=== PATIENT | female | born 1960 | race Caucasian/White ===

== ENCOUNTER 2024-11-09 16:15 | Emergency (ER) | payer MEDICARE ==
[2024-11-09 16:48] VITALS: RESP 16
[2024-11-09] MEDS: SODIUM CHLORIDE 0.9% 1,000 ML IV STA (16:59)
[2024-11-09] MEDS: methylPREDNISolone SOD SUCCI 125 MG/2 ML VIAL IV STA (16:59)
[2024-11-09 17:09] LABS: Basophils % (A) 0 %; Eosinophils # (A) 0.4 k/uL (0-0.7); Eosinophils % (A) 4 %; HCT 40.2 % (34.0-46.0); HGB 13.3 gm/dL (11.4-16.0); Lymphocytes # (A) 1.5 k/uL (1.0-4.8); Lymphocytes % (A) 14 %; MCH 29.1 pg (25.0-35.0); Mean Platelet Volume 7.3; Monocytes # (A) 0.5 k/uL (0-1.0); Monocytes % (A) 5 %; Neutrophils # (A) 8.2 k/uL (1.3-7.7); Neutrophils % (A) 76 %; Platelet Count 311 k/uL (150-450); RBC 4.57 m/uL (3.80-5.40); WBC 10.8 k/uL (3.8-10.6)
[2024-11-09 17:19] LABS: ALT 18 U/L (4-34); AST 30 U/L (14-36); African American GFR (CKD) 65 (>60 ml/min/1.73 sqM); Albumin 4.1 g/dL (3.5-5.0); Alkaline Phosphatase 76 U/L (38-126); Anion Gap 11 mmol/L; Blood Urea Nitrogen 19 mg/dL (7-17); Calcium 9.1 mg/dL (8.4-10.2); Carbon Dioxide 27 mmol/L (22-30); Chloride 98 mmol/L (98-107); Glucose 84 mg/dL (74-99); Magnesium 2.2 mg/dL (1.6-2.3); Non-African American GFR(CKD) 56 (>60 ml/min/1.73 sqM); Potassium 3.4 mmol/L (3.5-5.1); Sodium 136 mmol/L (137-145); Total Bilirubin 0.5 mg/dL (0.2-1.3); Total Protein 7.1 g/dL (6.3-8.2)
[2024-11-09] MEDS: IPRATROPIUM-ALBUTEROL 3 ML NEB INHALATION STA (17:29)
--- NOTE | 2024-11-09 17:36 | XR ---
EXAMINATION TYPE: XR chest 2V DATE OF EXAM: 11/09/2024 4:57 PM COMPARISON: None. CLINICAL INDICATION: Female, 64 years old with history of difficulty breathing, TECHNIQUE: XR chest 2V view(s) obtained. FINDINGS: The heart size is normal. The pulmonary vasculature is normal. There are some patchy densities within the right mid and lower lung field. Additional workup is recom mended. Small left pleural effusion may be present.. IMPRESSION: 1. Some patchy density may be in the periphery of the left mid and lower lung field with small left p leural effusion. Infiltrate such as pneumonia should be considered. Consider atypical pneumonia. Unde rlying masses are not excluded. Follow-up to clearing is recommended. [facility], Workstation: [id number], 11/09/2024 5:34 PM
[2024-11-09 17:46] LABS: Influenza A Not Detected (Not Detectd); Influenza B Not Detected (Not Detectd); RSV Not Detected (Not Detectd)
--- NOTE | 2024-11-09 18:38 | ED ---
General Adult HPI - General Chief complaint: Chest Pain Stated complaint: chest pain Time Seen by Provider: 11/09/24 16:38 Source: patient, RN notes reviewed, old records reviewed Mode of arrival: ambulatory Limitations: no limitations - History of Present Illness Initial comments: Patient is a 64-year-old female presents emergency department after being sent by urgent care for evaluation for possible pneumothorax. Patient has been having cough, congestion for a few days and is having some left-sided chest wall pain that is worse with coughing and deep inspiration. States she has been having some violent coughing. Has a history of asthma. Went to urgent care and they did a chest x-ray and sent her here as they were uncertain whether she had a pneumothorax or not. There was concern for possibly one on the left side but they were uncertain. Wanted her to be evaluated at our facility. - Related Data Home Medications Medication Instructions Recorded Confirmed ALPRAZolam [Xanax] 0.25 mg PO DAILY PRN 11/09/24 11/09/24 Albuterol Sulfate [Albuterol 2 puff PO RT-QID PRN 11/09/24 11/09/24 Sulfate Hfa] Budesonide/Formoterol Fumarate 2 puff PO RT-BID 11/09/24 11/09/24 [Budesonide-Formoterol 160-4.5] Latanoprost [Latanoprost 0.005%] 1 drop BOTH EYES HS 11/09/24 11/09/24 Losartan [Cozaar] 50 mg PO HS 11/09/24 11/09/24 Montelukast [Singulair] 10 mg PO HS 11/09/24 11/09/24 Progesterone, Micronized 100 mg PO HS 11/09/24 11/09/24 [Progesterone] Umeclidinium [place] [Incruse 1 puff INHALATION RT-DAILY 11/09/24 11/09/24 Ellipta] amLODIPine [Norvasc] 10 mg PO DAILY 11/09/24 11/09/24 hydroCHLOROthiazide [Hydrodiuril] 25 mg PO DAILY 11/09/24 11/09/24 Previous Rx's Medication Instructions Recorded Levofloxacin [Levaquin] 750 mg PO DAILY 10 Days #10 tab 11/09/24 predniSONE [Deltasone] 40 mg PO DAILY 5 Days #10 tab 11/09/24 Allergies Allergy/AdvReac Type Severity Reaction Status Date / Time sulfamethoxazole Allergy Rash/Hives Verified 11/09/24 18:16 [From Bactrim] trimethoprim [From Bactrim] Allergy Rash/Hives Verified 11/09/24 18:16 Review of Systems ROS Statement: Those systems with pertinent positive or pertinent negative responses have been documented in the HPI. Review of Systems: CONST: Denies fever EYES: Denies blurry vision ENT: Endorses nasal congestion C/V: Endorses chest wall pain RESP: Endorses cough GI: Denies abdominal pain : Denies dysuria SKIN: Denies rash. MSK: Denies joint pain. NEURO: Denies headache ROS Other: All systems not noted in ROS Statement are negative. Past Medical History Past Medical History: Asthma, Hypertension, Supraventricular Tachycardia (SVT) Additional Past Medical History / Comment(s): Left BBB Past Surgical History: Adenoidectomy, Cholecystectomy, Hysterectomy, Joint Replacement, Tonsillectomy Past Psychological History: Anxiety Smoking Status: Never smoker Past Alcohol Use History: Occasional Past Drug Use History: None Reported General Exam - General Exam Comments Initial Comments: General: Appears in no acute distress. HEAD: Normal with no signs of head trauma. EYES: PERRLA, EOMI, conjunctiva normal, no discharge. ENT: Hearing grossly intact, normal oropharynx. Trachea is midline. RESPIRATORY: No respiratory distress. No hypoxia. Bilateral end expiratory wheezing. C/V: Regular rate and rhythm. S1 and S2 auscultated, no edema, peripheral pulses 2+ and intact throughout ABD: Abd is soft, nontender, nondistended EXT: Normal range of motion, no obvious deformity. Reproducible left-sided chest wall pain over the left anterior aspect of the chest in the intercostal spaces. Worse with coughing and palpation. SKIN: No rashes or lesions observed on exposed skin. NEURO: Alert and oriented x 4. Limitations: no limitations Course Vital Signs 11/09/24 11/09/24 11/09/24 16:19 16:37 17:30 Temperature 97.3 F L Pulse Rate 78 73 78 Respiratory 20 16 Rate Blood Pressure 130/76 126/73 O2 Sat by Pulse 99 96 Oximetry 11/09/24 11/09/24 11/09/24 17:49 18:42 19:15 Temperature Pulse Rate 70 75 79 Respiratory 16 16 Rate Blood Pressure 131/71 140/79 O2 Sat by Pulse 96 95 Oximetry 11/09/24 19:34 Temperature 97.4 F L Pulse Rate 81 Respiratory 16 Rate Blood Pressure 140/79 O2 Sat by Pulse 97 Oximetry Medical Decision Making - Medical Decision Making Was pt. sent in by a medical professional or institution (, ROBY, [employer], urgent care, hospital, or alf...) When possible be specific @ -Sent by urgent care for evaluation for URI/possible pneumothorax as a stated chest x-ray was inconclusive at that facility. Did you speak to anyone other than the patient for history (EMS, parent, family, police, friend...)? What history was obtained from this source @ -No Did you review nursing and triage notes (agree or disagree)? Why? @ -I reviewed and agree with nursing and triage notes Were old charts reviewed (outside hosp., previous admission, EMS record, old EKG, old radiological studies, urgent care reports/EKG's, alf records)? Report findings @ -No old charts were reviewed Differential Diagnosis (chest pain, altered mental status, abdominal pain women, abdominal pain men, vaginal bleeding, weakness, fever, dyspnea, syncope, headache, dizziness, GI bleed, back pain, seizure, CVA, palpatations, mental health, musculoskeletal)? @ -COPD, pneumothorax, asthma, COVID, flu, RSV, pneumonia EKG interpreted by me (3pts min.). @ -As above X-rays interpreted by me (1pt min.). @ -Chest x-ray reveals left-sided suspected infiltrates considering the patient's presentation. Radiology cannot rule out mass. Small left pleural effusion present. No evidence of pneumothorax. CT interpreted by me (1pt min.). @ -None done U/S interpreted by me (1pt. min.). @ -None done What testing was considered but not performed or refused? (CT, X-rays, U/S, labs)? Why? @ -None What meds were considered but not given or refused? Why? @ -None Did you discuss the management of the patient with other professionals (professionals i.e. ROBY Koo, [employer], lab, RT, psych nurse, healthcare social worker, hat and cap drying room attendant, te acher, purchasing officer, assistant case manager)? Give summary @ -No Was smoking cessation discussed for >3mins.? @ -No Was critical care preformed (if so, how long)? @ -No Were there social determinants of health that impacted care today? How? (Homelessness, low income, unemployed, alcoholism, drug addiction, transportation, low edu. Level, literacy, decrease access to med. care, fci, rehab)? @ -No Was there de-escalation of care discussed even if they declined (Discuss DNR or withdrawal of care, Hospice)? DNR status @ -No What co-morbidities impacted this encounter? (DM, HTN, Smoking, COPD, CAD, C ancer, CVA, ARF, Chemo, Hep., AIDS, mental health diagnosis, sleep apnea, morbid obesity)? @ -Asthma Was patient admitted / discharged? Hospital course, mention meds given and route, prescriptions, significant lab abnormalities, going to OR and other pertinent info. @ -Patient presents with productive cough as well as chest wall pain in the setting of asthma. Appears to be having asthma exacerbation. The chest wall pain is likely secondary to coughing as it is reproducible on palpation and s eems to be on the chest wall itself. No cardiac history. Sent by urgent care over concern for possible pneumothorax and chest x-ray however inconclusive. Patient is resting comfortably with normal vital signs. No respiratory distress. Chest x-ray revealed no evidence of pneumothorax. Patient does appear to have a left-sided pneumonia. EKG shows no signs of acute ischemia. Chronic left bund le branch block per patient. Laboratory studies are remarkable for mild hypokalemia which was replenished. Troponin was obtained and is undetectable. Viral swabs are negative. I discussed results with the patient. She will be discharged home at this time. No concern for pneumothorax at this time as chest x-ray shows no evidence of 1. Patient will be started on steroids for home, antibiotics and given a dose of Rocephin as well as Levaquin here. She will be treated for the pneumonia with Levaquin at home. Also given prednisone. Offered to refill her albuterol inhaler but she states she has enough at home. She be discharged home at this time. Strict return precautions discussed. II instructed the patient to follow up with their PCP in the next 1-3 days. I explained that the patient should return to the emergency department if they experience any worsening symptoms. Strict return precautions were discussed with the patient. The patient expressed understanding of these instructions. I answered all questions that the patient had. The patient was discharged home in good condition with their prescriptions and follow up information. Undiagnosed new problem with uncertain prognosis? @ -No Drug Therapy requiring intensive monitoring for toxicity (Heparin, Nitro, Insulin, Cardizem)? @ -No Were any procedures done? @ -No Diagnosis/symptom? @ -Asthma, pneumonia, chest wall pain Acute, or Chronic, or Acute on Chronic? @ -Acute Uncomplicated (without systemic symptoms) or Complicated (systemic symptoms)? @ -Uncomplicated Side effects of treatment? @ -No Exacerbation, Progression, or Severe Exacerbation? @ -No Poses a threat to life or bodily function? How? (Chest pain, [place], [place], pneumonia, PE, COPD, DKA, ARF, appy, cholecystitis, CVA, Diverticulitis, Homicidal, [place] icidal, threat to staff... and all critical care pts) @ -Unlikely at this time - Lab Data Result diagrams: 11/09/24 16:57 11/09/24 16:57 Lab Results 11/09/24 11/09/24 11/09/24 Range/Units 16:57 16:57 16:57 WBC 10.8 H (3.8-10.6) k/uL RBC 4.57 (3.80-5.40) m/uL Hgb 13.3 (11.4-16.0) gm/dL Hct 40.2 (34.0-46.0) % MCV 88.0 (80.0-100.0) fL MCH 29.1 (25.0-35.0) pg MCHC 33.0 (31.0-37.0) g/dL RDW 13.0 (11.5-15.5) % Plt Count 311 (150-450) k/uL MPV 7.3 Neutrophils % 76 % Lymphocytes % 14 % Monocytes % 5 % Eosinophils % 4 % Basophils % 0 % Neutrophils # 8.2 H (1.3-7.7) k/uL Lymphocytes # 1.5 (1.0-4.8) k/uL Monocytes # 0.5 (0-1.0) k/uL Eosinophils # 0.4 (0-0.7) k/uL Basophils # 0.0 (0-0.2) k/uL Sodium 136 L (137-145) mmol/L Potassium 3.4 L (3.5-5.1) mmol/L Chloride 98 (98-107) mmol/L Carbon Dioxide 27 (22-30) mmol/L Anion Gap 11 mmol/L BUN 19 H (7-17) mg/dL Creatinine 1.04 (0.52-1.04) mg/dL Est GFR (CKD-EPI)AfAm 65 (>60 ml/min/1.73 sqM) Est GFR (CKD-EPI)NonAf 56 (>60 ml/min/1.73 sqM) Glucose 84 (74-99) mg/dL Calcium 9.1 (8.4-10.2) mg/dL Magnesium 2.2 (1.6-2.3) mg/dL Total Bilirubin 0.5 (0.2-1.3) mg/dL AST 30 (14-36) U/L ALT 18 (4-34) U/L Alkaline Phosphatase 76 (38-126) U/L Troponin I (0.000-0.034) ng/mL Total Protein 7.1 (6.3-8.2) g/dL Albumin 4.1 (3.5-5.0) g/dL Influenza Type A (PCR) Not Detected (Not Detectd) Influenza Type B (PCR) Not Detected (Not Detectd) RSV (PCR) Not Detected (Not Detectd) SARS-CoV-2 (PCR) Not Detected (Not Detectd) 11/09/24 Range/Units 18:29 WBC (3.8-10.6) k/uL RBC (3.80-5.40) m/uL Hgb (11.4-16.0) gm/dL Hct (34.0-46.0) % MCV (80.0-100.0) fL MCH (25.0-35.0) pg MCHC (31.0-37.0) g/dL RDW (11.5-15.5) % Plt Count (150-450) k/uL MPV Neutrophils % % Lymphocytes % % Monocytes % % Eosinophils % % Basophils % % Neutrophils # (1.3-7.7) k/uL Lymphocytes # (1.0-4.8) k/uL Monocytes # (0-1.0) k/uL Eosinophils # (0-0.7) k/uL Basophils # (0-0.2) k/uL Sodium (137-145) mmol/L Potassium (3.5-5.1) mmol/L Chloride (98-107) mmol/L Carbon Dioxide (22-30) mmol/L Anion Gap mmol/L BUN (7-17) mg/dL Creatinine (0.52-1.04) mg/dL Est GFR (CKD-EPI)AfAm (>60 ml/min/1.73 sqM) Est GFR (CKD-EPI)NonAf (>60 ml/min/1.73 sqM) Glucose (74-99) mg/dL Calcium (8.4-10.2) mg/dL Magnesium (1.6-2.3) mg/dL Total Bilirubin (0.2-1.3) mg/dL AST (14-36) U/L ALT (4-34) U/L Alkaline Phosphatase (38-126) U/L Troponin I <0.012 (0.000-0.034) ng/mL Total Protein (6.3-8.2) g/dL Albumin (3.5-5.0) g/dL Influenza Type A (PCR) (Not Detectd) Influenza Type B (PCR) (Not Detectd) RSV (PCR) (Not Detectd) SARS-CoV-2 (PCR) (Not Detectd) - EKG Data -: EKG Interpreted by Me EKG Comments: 12-lead Electrocardiogram Interpretation Note EKG was reviewed and interpreted by myself. 12-lead ECG performed at 1715 is interpreted by me as revealing normal sinus rhythm at a rate of default value beats per minute. [place] is normal. ME interval is 147 ms, QRS duration is 142 ms, QTc is [address] segment and T wave abnormalities in the setting of chronic left bundle branch block.. R wave progression across the precordium was delayed. By my interpretation this EKG is non-diagnostic for acute ischemia. Disposition Clinical Impression: Chest wall pain, Pneumonia, Asthma Disposition: HOME SELF-CARE Condition: Good Instructions (If sedation given, give patient instructions): Asthma (ED), Community Acquired Pneumonia (ED), Chest Wall Pain (ED) Prescriptions: predniSONE [Deltasone] 40 mg PO DAILY 5 Days #10 tab Levofloxacin [Levaquin] 750 mg PO DAILY 10 Days #10 tab Is patient prescribed a controlled substance at d/c from ED?: No Referrals: Ozzy Vivas DO [Primary Care Provider] - 1-2 days Time of Disposition: 19:10
[2024-11-09] MEDS: POTASSIUM CHLORIDE ER 20 MEQ TAB.ER PO STA (18:45)
[2024-11-09] MEDS: LEVOFLOXACIN 750 MG TAB PO STA (18:45)
[2024-11-09] MEDS: cefTRIAXone IN SWFI 1,000 MG/10 ML SYRINGE IVP STA (18:45)
[2024-11-09 19:16] VITALS: BP 140/79
[2024-11-09 19:37] VITALS: PULSE 81; TEMP 97.4
== END 2024-11-09 19:44 | disposition home or self-care (01) ==
LOC: EC 16:15
DX: J18.9 Pneumonia, unspecified organism (principal); J45.909 Unspecified asthma, uncomplicated; Z88.1 Allergy status to other antibiotic agents; Z88.2 Allergy status to sulfonamides
CPT/HCPCS: 36415; 94640; 93005; 80053; 83735; 84484; 85025; 87636; 71046; 99285; 96374; 96375; 96361 ×2; J0696; J2919